=== PATIENT | female | born 1965 | race Caucasian/White ===

== ENCOUNTER 2017-02-28 23:35 | Emergency (ER) | payer BC ==
--- NOTE | 2017-02-28 23:53 | EDM.PDOC ---
ED HPI GENERAL MEDICAL PROBLEM - General Chief Complaint: Chest Pain Stated Complaint: CHEST PAIN Time Seen by Provider: 02/28/17 23:52 Source of Information: Reports: Patient History Limitations: Reports: No Limitations - History of Present Illness INITIAL COMMENTS - FREE TEXT/NARRATIVE: c/o recurrent h/o chest pain prior episodes due to extreme stress, had normal stress 2 years ago see Emily santillan, present episode on off all day but tonight felt worse with pain going down left arm. - Related Data Allergies Allergy/AdvReac Type Severity Reaction Status Date / Time nitrofurantoin Allergy Chest Pain Verified 02/28/17 23:57 [From Macrobid] Home Meds: Home Meds . [No Known Home Meds] 09/15/16 [History] Past Medical History - Past Health History Medical/Surgical History: Denies Medical/Surgical History - Past Surgical History Female Surgical History: Reports: Tubal Ligation Social & Family History - Tobacco Use Smoking Status *Q: Current Every Day Smoker Years of Tobacco use: 3 Packs/Tins Daily: 0.5 Used Tobacco, but Quit: No Second Hand Smoke Exposure: Yes - Caffeine Use Caffeine Use: Reports: Soda Caffeine Use Comment: states one a day - Recreational Drug Use Recreational Drug Use: No ED ROS GENERAL - Review of Systems Review Of Systems: ROS reveals no pertinent complaints other than HPI. ED EXAM, GENERAL - Physical Exam Exam: See Below Exam Limited By: No Limitations General Appearance: Alert, WD/WN, Anxious, Mild Distress Ears: Hearing Grossly Normal Throat/Mouth: Normal Voice, No Airway Compromise Head: Atraumatic Neck: Non-Tender, Full Range of Motion Respiratory/Chest: No Respiratory Distress Cardiovascular: Regular Rate, Rhythm GI/Abdominal: Soft, Non-Tender Neurological: Alert, Oriented, Normal Cognition, Normal Gait, No Motor/Sensory Deficits Psychiatric: Anxious Skin Exam: Warm, Dry Lymphatic: No Adenopathy Course - Vital Signs Last Recorded V/S: Last Vital Signs Temp 36.5 C 03/01/17 03:52 Pulse 63 03/01/17 03:52 Resp 16 03/01/17 03:52 BP 125/68 03/01/17 03:52 Pulse Ox 97 03/01/17 03:52 - Orders/Labs/Meds Orders: Active Orders 24 hr Category Date Time Status EKG Documentation Completion [RC] STAT Care 02/28/17 23:48 Active Labs: Laboratory Tests 02/28/17 02/28/17 03/01/17 Range/Units 00:01 00:01 03:08 WBC 6.0 (5.0-10.0) 10^3/uL RBC 4.20 (4.2-5.4) 10^6/uL Hgb 12.2 (12.0-16.0) g/dL Hct 36.7 L (37.0-47.0) % MCV 87.4 (80-100) fL MCH 29.0 (27.0-34.0) pg MCHC 33.2 (33.0-35.0) g/dL Plt Count 318 (150-450) 10^3/uL Neut % (Auto) 53.8 (42.2-75.2) % Lymph % (Auto) 35.7 (20.5-50.1) % [place]cock % (Auto) 9.0 H (2-8) % Eos % (Auto) 1.2 (1.0-3.0) % Baso % (Auto) 0.3 (0.0-1.0) % Sodium 137 (135-145) mmol/L Potassium 4.0 (3.6-5.0) mmol/L Chloride 101 (101-111) mmol/L Carbon Dioxide 24.0 (21.0-31.0) mmol/L Anion Gap 16.0 BUN 9 (7-18) mg/dL Creatinine 0.7 (0.6-1.3) mg/dL Est Cr Clr Drug Dosing 106.27 mL/min Estimated GFR (MDRD) > 60 BUN/Creatinine Ratio 12.85 Glucose 105 (74-105) mg/dL Calcium 8.8 (8.4-10.2) mg/dl Total Bilirubin 1.1 H (0.2-1.0) mg/dL AST 22 (10-42) IU/L ALT 19 (10-60) IU/L Alkaline Phosphatase 55 (42-121) IU/L Troponin I < 0.02 < 0.02 (0.00-0.02) ng/ml Total Protein 6.9 (6.7-8.2) g/dl Albumin 3.9 (3.2-5.5) g/dl Globulin 3.0 Albumin/Globulin Ratio 1.30 Meds: Medications Discontinued Medications Generic Name Dose Route Start Last Admin Trade Name Sander PRN Reason Stop Dose Admin Hydrocodone Bitart/Acetaminophen 1 tab 03/01/17 01:23 03/01/17 01:27 [place] 325-10 Mg PO 03/01/17 01:24 1 tab ONETIME ONE Administration Aspirin 324 mg 03/01/17 00:04 03/01/17 00:12 Aspirin PO 03/01/17 00:05 324 mg ONETIME ONE Administration Sodium Chloride 1,000 mls @ 999 mls/hr 03/01/17 02:09 03/01/17 00:30 Normal Saline IV 03/01/17 03:09 999 mls/hr .BOLUS ONE Administration Lorazepam 2 mg 03/01/17 00:23 03/01/17 00:35 Ativan IVPUSH 03/01/17 00:24 2 mg ONETIME ONE Administration Nitroglycerin 0.4 mg 03/01/17 00:04 03/01/17 00:13 Nitrostat SL 03/01/17 00:05 0.4 mg ONETIME ONE Administration - Re-Assessments/Exams Free Text/Narrative Re-Assessment/Exam: 03/01/17 00:23 s/p NTG = feels worse. has h/o anxiety. 03/01/17 00:53 s/p ativan = better but not 100%, 03/01/17 06:36 re-exam; results discussed with Pt who is feeling better. Departure - Departure Time of Disposition: 06:36 Disposition: Home, Self-Care 01 Condition: Good Clinical Impression: Atypical chest pain, Reaction, situational, acute, to stress Instructions: Nonspecific Chest Pain, [id number] Forms: ED Department Discharge Additional Instructions: 1) rest 2) see family doctor or clinic for CARDIOLOGY CONSULT 3) recheck if there is any change or concern - My Orders Last 24 Hours: My Active Orders 02/28/17 23:48 EKG Documentation Completion [RC] STAT - Assessment/Plan Last 24 Hours: My Active Orders 02/28/17 23:48 EKG Documentation Completion [RC] STAT
[2017-03-01] MEDS ORDERED: Nitroglycerin 0.4 MG Tab.SL SL ONE (00:04)
[2017-03-01] MEDS ORDERED: Aspirin 81 MG Tab.Chew PO ONE (00:04)
[2017-03-01] MEDS ORDERED: LORazepam 2 MG/ML Syringe IVPUSH ONE (00:23)
[2017-03-01 00:28] LABS: CHLORIDE,CL 101 mmol/L (101-111); SODIUM,NA 137 mmol/L (135-145)
[2017-03-01] MEDS ORDERED: Acetaminophen/HYDROcodone 325-10 MG Tab PO ONE (01:23)
[2017-03-01] MEDS ORDERED: Sodium Chloride 0.9% 1,000 ML IV ONE (02:09)
[2017-03-01 03:53] VITALS: BP 125/68
--- NOTE | 2017-03-01 14:07 | EKG ---
02/28/2017- KANDICE TORRES - Jose Alejandro 12-lead EKG shows normal sinus rhythm with heart rate of 64. No significant ST elevation or ST depression noted on this 12-lead EKG. Nonspecific ST-T wave changes noted on lead III and also on V2. [facility] /[id number]
== END 2017-03-01 06:35 | disposition home or self-care (01) ==
LOC: DL.ED 23:35
DX: R07.89 Other chest pain (principal); F43.0 Acute stress reaction; F17.210 Nicotine dependence, cigarettes, uncomplicated; Z88.8 Allergy status to other drugs, medicaments and biological substances; Z98.51 Tubal ligation status
CPT/HCPCS: 36415; 71010; 80053; 84484; 85025; 93005; A9270; J2060; J7030; 96365; 96375; 99285

== ENCOUNTER 2020-02-13 16:20 | Emergency (ER) | payer BC ==
[2020-02-13] MEDS ORDERED: Aspirin 81 MG Tab.Chew PO ONE (16:49)
[2020-02-13] MEDS ORDERED: GI Cocktail Oral Solution 30 ML PO ONE (16:49)
--- NOTE | 2020-02-13 16:54 | EDM.PDOC ---
ED HPI GENERAL MEDICAL PROBLEM - General Chief Complaint: Chest Pain Stated Complaint: CHEST PAINS Time Seen by Provider: 02/13/20 16:51 Source of Information: Reports: Patient History Limitations: Reports: No Limitations - History of Present Illness INITIAL COMMENTS - FREE TEXT/NARRATIVE: Patient comes emergency department today with complaints of chest pain. The patient reports over the past 4 days she has had intermittent burning across the epigastric region of her abdomen and lower chest. The pain comes and goes on its own feels like a heaviness pressure. It will happen at rest or with physical activity. It does feel like her heartburn that she has struggled with in the past that has been really much worse over the past week and she is struggled immensely with it and feels like she is constantly having heartburn. She has no diaphoresis. The pain does not radiate anywhere. Does not radiate into her back. No syncope weakness dizziness lightheadedness. No cough or congestion. No fever no chills. No abdominal pain other than the epigastric pain. She was seen in the clinic today for urinary tract infection which she is was started on antibiotics for. She did tell the clinic provider that she was having chest pain and they told her to go to the ER during her visit. Chest Pain Score (Numeric/FACES): 5 - Related Data Allergies Allergy/AdvReac Type Severity Reaction Status Date / Time nitrofurantoin Allergy Chest Pain Verified 02/28/17 23:57 [From Macrobid] Home Meds: Home Meds Pantoprazole Sodium [Protonix] 20 mg PO DAILY #28 tablet. 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[employer]ARY History: Reports: Dysfunctional Uterine Bleeding Musculoskeletal History: Reports: None Neurological History: Reports: None Psychiatric History: Reports: None Endocrine/Metabolic History: Reports: None Hematologic History: Reports: None Dermatologic History: Reports: None - Infectious Disease History Infectious Disease History: Reports: None - Past Surgical History Female Surgical History: Reports: Tubal Ligation Social & Family History - Family History Family Medical History: Noncontributory - Tobacco Use Smoking Status *Q: Current Every Day Smoker Years of Tobacco use: 40 Packs/Tins Daily: 0.5 Used Tobacco, but Quit: No Second Hand Smoke Exposure: No - Caffeine Use Caffeine Use: Reports: None Caffeine Use Comment: states one a day - Recreational Drug Use Recreational Drug Use: No ED ROS GENERAL - Review of Systems Review Of Systems: Comprehensive ROS is negative, except as noted in HPI. ED EXAM, GENERAL - Physical Exam Exam: See Below Exam Limited By: No Limitations General Appearance: Alert, WD/WN, No Apparent Distress, Anxious Ears: Normal External Exam Nose: Normal Inspection Throat/Mouth: Normal Inspection Head: Atraumatic, Normocephalic Neck: Normal Inspection, Supple, Non-Tender Respiratory/Chest: No Respiratory Distress, Lungs Clear, Normal Breath Sounds, No Accessory Muscle Use, Chest Non-Tender Cardiovascular: Normal Peripheral Pulses, Regular Rate, Rhythm Peripheral Pulses: 2+: Radial (L), Radial (R), Posterior Tibial (L), Posterior Tibial (R), Dorsalis Pedis (L), Dorsalis Pedis (R) GI/Abdominal: Normal Bowel Sounds, Soft, Tender (mild tenderness in the epigastric region without guarding rebound. Negative murphys sign. ) (Female) Exam: Deferred Rectal (Female) Exam: Deferred Back Exam: Normal Inspection, Full Range of Motion Extremities: Normal Inspection, Normal Range of Motion, Non-Tender, No Pedal Edema Neurological: Alert, Oriented, Normal Cognition, No Motor/Sensory Deficits Psychiatric: Normal Affect, Normal Mood Skin Exam: Warm, Dry, Intact, Normal Color, No Rash EKG INTERPRETATION EKG Date: 02/13/20 Time: 16:31 Rhythm: NSR Rate (Beats/Min): 76 [place]: Normal P-Wave: Present QRS: Normal ST-T: Normal QT: Normal Course - Vital Signs Last Recorded V/S: Last Vital Signs Temp 97.2 F 02/13/20 16:35 Pulse 90 02/13/20 16:35 Resp 18 02/13/20 16:35 BP 152/71 H 02/13/20 16:35 Pulse Ox 99 02/13/20 16:35 - Orders/Labs/Meds Orders: Active Orders 24 hr Category Date Time Status EKG 12 Lead [EKG Documentation Completion] [RC] STAT Care 02/13/20 16:32 Active Labs: Laboratory Tests 02/13/20 02/13/20 Range/Units 16:30 16:30 WBC 5.6 (5.0-10.0) 10^3/uL RBC 4.16 L (4.2-5.4) 10^6/uL Hgb 14.2 D (12.0-16.0) g/dL Hct 40.4 (37.0-47.0) % MCV 97.1 D (80-100) fL MCH 34.1 H (27.0-34.0) pg MCHC 35.1 H (33.0-35.0) g/dL Plt Count 327 (150-450) 10^3/uL Neut % (Auto) 58.7 (42.2-75.2) % Lymph % (Auto) 31.1 (20.5-50.1) % [place] % (Auto) 8.3 H (2-8) % Eos % (Auto) 1.4 (1.0-3.0) % Baso % (Auto) 0.5 (0.0-1.0) % Sodium 138 (136-145) mmol/L Potassium 3.6 (3.5-5.1) mmol/L Chloride 100 (98-107) mmol/L Carbon Dioxide 26 (21-32) mmol/L Anion Gap 15.6 H (7-13) mEq/L BUN 14 (7-18) mg/dL Creatinine 1.31 H (0.55-1.02) mg/dL Est Cr Clr Drug Dosing TNP Estimated GFR (MDRD) 42 BUN/Creatinine Ratio 10.7 (No establ ref range) Glucose 115 H (74-99) mg/dL Calcium 9.4 (8.5-10.1) mg/dL Total Bilirubin 1.3 H (0.2-1.0) mg/dL AST 85 H (15-37) U/L ALT 122 H (14-59) U/L Alkaline Phosphatase 66 (46-116) U/L Troponin I < 0.017 (0.000-0.056) ng/mL Total Protein 8.0 (6.4-8.2) g/dL Albumin 4.2 (3.4-5.0) g/dL Globulin 3.8 Albumin/Globulin Ratio 1.1 Meds: Medications Discontinued Medications Generic Name Dose Route Start Last Admin Trade Name Sander PRN Reason Stop Dose Admin Al Hydroxide/Mg Hydroxide 30 ml 02/13/20 16:49 02/13/20 17:17 Gi Cocktail PO 02/13/20 16:50 30 ml ONETIME ONE Administration Aspirin 324 mg 02/13/20 16:49 02/13/20 17:17 Aspirin PO 02/13/20 16:50 324 mg ONETIME ONE Administration Pantoprazole Sodium 40 mg 02/13/20 17:40 02/13/20 17:58 Protonix PO 02/13/20 17:41 40 mg ONETIME ONE Administration - Re-Assessments/Exams Free Text/Narrative Re-Assessment/Exam: 02/13/20 GI Cocktail with an aprox 95% resolution of the symptoms that she had upon arrival. Labs normal EKG normal Patient's anxiety has resolved also. With her longstanding history of heartburn and her increasing crescendoing symptoms of heartburn over the last week and the resolution of her symptoms with a GI cocktail this is clearly GERD. She does admit that she has been trying to back off on her Zantac and not take it daily as she has done for years. Splane to her that there is a very specific stepwise process for the discontinuation of H2 blockers or PPIs. Is not uncommon when abrupt discontinuation or changes in GERD happened suddenly and they get a rebound hypersecretory response. I also concerns that the patient has never had an EGD with her longstanding history of severe heartburn. She is never vomited any blood. She never has any black or tarry stools. We will start her on Carafate and Protonix for the next 28 days. She does have a history of a peptic ulcer that she was diagnosed with although she is never had a scope to look at her stomach. Like her to follow-up with her primary care kelsey acosta that she already has scheduled and discussed management of GERD testing for Helicobacter pylori disease and a possible EGD. Is comfortable with this plan and her questions are answered. Departure - Departure Time of Disposition: 17:41 Disposition: Home, Self-Care 01 Clinical Impression: Atypical chest pain Gastroesophageal reflux disease Qualifiers: Esophagitis presence: esophagitis presence not specified Qualified Code(s): K21.9 - Gastro-esophageal reflux disease without esophagitis Prescriptions: Sucralfate [Carafate] 1 gm PO QIDACANDBED #120 tablet Pantoprazole Sodium [Protonix] 20 mg PO DAILY #28 tablet.dr Instructions: Food Choices for Gastroesophageal Reflux Disease, Adult, Nonspecific Chest Pain, Adult, [id number], Gastroesophageal Reflux Disease, Adult, [id number] Referrals: PCP,None [Primary Care Provider] - Forms: ED Department Discharge Additional Instructions: Maalox or Mylanta for acute episode of heart burn. Carafate 1 tablet 4 times a day 1/2hr before meals and bedtime for the next 28 days. RX given to the patient. Protonix 40mg daily for the next 28 days. RX given to the patient. If the pain does not resolve with the above therapy seek care at the clinic or ED. See your PCP in the next 5 days. Really consider an EGD scope for your stomach and also possibly a stress test. Return to the ED if new or worsening symptoms. Sepsis Event Note (ED) - Evaluation Sepsis Screening Result: No Definite Risk - My Orders Last 24 Hours: My Active Orders 02/13/20 16:32 EKG 12 Lead [EKG Documentation Completion] [RC] STAT - Assessment/Plan Last 24 Hours: My Active Orders 02/13/20 16:32 EKG 12 Lead [EKG Documentation Completion] [RC] STAT
[2020-02-13 16:57] LABS: ANION GAP 15.6 mEq/L (7-13); CHLORIDE,CL 100 mmol/L (98-107); SODIUM,NA 138 mmol/L (136-145)
--- NOTE | 2020-02-13 17:10 | CR ---
PROCEDURE INFORMATION: Exam: XR Chest, 1 View Exam date and time: 02/13/2020 4:56 PM Age: 54 years old Clinical indication: Other: Cp SOB TECHNIQUE: Imaging protocol: XR of the chest Views: 1 view. COMPARISON: CR Chest 1V Frontal 03/01/2017 12:08 AM FINDINGS: Lungs: Unremarkable. No consolidation. Pleural space: Unremarkable. No pleural effusion. No pneumothorax. Heart/Mediastinum: Unremarkable. No cardiomegaly. Bones/joints: Unremarkable. IMPRESSION: No acute findings. No change.
[2020-02-13] MEDS ORDERED: Pantoprazole 40 MG Tab.CR PO ONE (17:40)
[2020-02-13 18:27] VITALS: BP 152/71; PULSE 90
== END 2020-02-13 18:09 | disposition home or self-care (01) ==
LOC: DL.ED 16:20
DX: K21.9 Gastro-esophageal reflux disease without esophagitis (principal); R07.89 Other chest pain; I10 Essential (primary) hypertension; F17.210 Nicotine dependence, cigarettes, uncomplicated; Z79.899 Other long term (current) drug therapy; Z88.1 Allergy status to other antibiotic agents
CPT/HCPCS: 36415; 71045; 80053; 84484; 85025; 93005; 99285; A9270

== ENCOUNTER 2021-01-27 23:48 | Emergency (ER) | payer BC, OTHER ==
[2021-01-28] MEDS ORDERED: Sodium Chloride 0.9% 1,000 ML IV ONE ×3 (01:35→05:09)
[2021-01-28] MEDS ORDERED: HYDROmorphone 0.5 MG/0.5 ML Syringe IVPUSH ONE (01:35)
[2021-01-28 02:06] LABS: CHLORIDE,CL 99 mmol/L (98-107); SODIUM,NA 135 mmol/L (136-145)
[2021-01-28] MEDS ORDERED: HYDROmorphone 1 MG/ML Syringe IVPUSH ONE (02:16)
--- NOTE | 2021-01-28 02:16 | EDM.PDOC ---
<Renetta Cook - Last Filed: 01/28/21 07:12> ED HPI GENERAL MEDICAL PROBLEM - General Chief Complaint: Abdominal Pain Stated Complaint: ABDOMIN PAIN, GOES UP TO CHEST Time Seen by Provider: 01/28/21 01:23 Source of Information: Reports: Patient, RN, RN Notes Reviewed History Limitations: Reports: No Limitations - History of Present Illness INITIAL COMMENTS - FREE TEXT/NARRATIVE: Patient is a 55-year-old female who presents to ER with complaint of abdominal pain that began around 6:30 PM. She rates the pain a 10/10. Pain is generalized in the abdomen wrapping around to the lower back as well. States she was out for supper with a friend, had decreased appetite, and had diarrhea 3 times while at the restaurant. Patient denies any vomiting, fever, chills. Admits to watery diarrhea since approximately 7 PM. Patient states she is had a headache throughout the day today, which she rates a 5/10 at this time. Admits to left arm tingling for the past 3 hours. Admits to chest pains when the abdominal pain is present, as well as shortness of breath. Patient states she has never had Covid, was last tested in May and that was negative. Denies any known exposure. Denies having had her vaccinations, and states she will not have her vaccinations. Patient states history of migraines, but has not had one for approximately 6 months. Admits to a history of hypertension, anxiety, heart murmur. Denies any history of colitis. Onset: Today, Sudden Lower Abdominal Pain Score (Numeric/FACES): 9 Bilateral Flank Pain Score (Numeric/FACES): 10 - Related Data Allergies Allergy/AdvReac Type Severity Reaction Status Date / Time nitrofurantoin Allergy Chest Pain Verified 01/28/21 00:34 [From Macrobid] Home Meds: Home Meds Pantoprazole Sodium [Protonix] 20 mg PO DAILY #28 maurice. 02/13/20 [Rx] Losartan [Cozaar] 100 mg PO DAILY 01/28/21 [History] buPROPion HCL [Bupropion Xl] 150 mg PO DAILY 01/28/21 [History] hydroCHLOROthiazide [Hydrochlorothiazide] 50 mg PO DAILY 01/28/21 [History] Past Medical History - Past Health History Medical/Surgical History: Denies Medical/Surgical History HEENT History: Reports: None Cardiovascular History: Reports: Heart Murmur, Hypertension, Other (See Below) Other Cardiovascular History: dystolic dysfunction Gastrointestinal History: Reports: GERD Genitourinary History: Reports: None DIABETES PHYSICIAN History: Reports: Dysfunctional Uterine Bleeding Musculoskeletal History: Reports: None Neurological History: Reports: None Psychiatric History: Reports: None Endocrine/Metabolic History: Reports: None Hematologic History: Reports: None Dermatologic History: Reports: None - Infectious Disease History Infectious Disease History: Reports: None - Past Surgical History Female Surgical History: Reports: Tubal Ligation Other Female Surgeries/Procedures: ablasion Social & Family History - Family History Family Medical History: No Pertinent Family History - Tobacco Use Tobacco Use Status *Q: Current Every Day Tobacco User Years of Tobacco use: 6 Packs/Tins Daily: 0.5 - Caffeine Use Caffeine Use: Reports: Soda Caffeine Use Comment: states one a day - Alcohol Use Days Per Week of Alcohol Use: 3 Number of Drinks Per Day: 4 Total Drinks Per Week: 12 - Recreational Drug Use Recreational Drug Use: No ED ROS GENERAL - Review of Systems Review Of Systems: Comprehensive ROS is negative, except as noted in HPI. ED EXAM, GENERAL - Physical Exam Exam: See Below Exam Limited By: No Limitations General Appearance: Alert, WD/WN, Moderate Distress Eye Exam: Bilateral Eye: EOMI, Normal Inspection Ears: Normal External Exam, Hearing Grossly Normal Nose: Normal Inspection Throat/Mouth: Normal Inspection, Normal Voice, No Airway Compromise Head: Atraumatic, Normocephalic Neck: Normal Inspection, Supple, Non-Tender, Full Range of Motion Respiratory/Chest: No Respiratory Distress, Lungs Clear, Normal Breath Sounds, No Accessory Muscle Use, Chest Non-Tender Cardiovascular: Normal Peripheral Pulses, Regular Rate, Rhythm, No Edema, No Ga llop, No JVD, No Rub, Systolic Murmur Peripheral Pulses: 2+: Radial (L), Radial (R) GI/Abdominal: Normal Bowel Sounds, Soft, Tender (generalized, wrapped around to the back) (Female) Exam: Deferred Rectal (Female) Exam: Deferred Back Exam: Normal Inspection, Full Range of Motion, CVA Tenderness (L), CVA Tenderness (R) Extremities: Normal Inspection, Normal Range of Motion, Non-Tender, No Pedal Edema, Normal Capillary Refill, Other (feeling of numbness/tingling to the left arm) Neurological: Alert, Oriented, CN II-XII Intact, Normal Cognition, Normal Gait, No Motor/Sensory Deficits Psychiatric: Normal Affect, Normal Mood, Anxious, Tearful Skin Exam: Warm, Dry, Intact, Normal Color, No Rash Lymphatic: No Adenopathy #1 Interpretation EKG Date: 01/28/21 Time: 01:47 Rhythm: NSR Rate (Beats/Min): 63 [place]: Normal P-Wave: Present QRS: Normal ST-T: Normal QT: Normal Comparison: No Change EKG Interpretation Comments: PVC Course - Radiology Interpretation Free Text/Narrative:: CT head wo contrast: PROCEDURE INFORMATION: Exam: CT Head Without Contrast Exam date and time: 01/28/2021 3:10 AM Age: 55 years old Clinical indication: Headache, abdominal pain. TECHNIQUE: Imaging protocol: Computed tomography of the head without contrast. Radiation optimization: All CT scans at this facility use at least one of these dose optimization techniques: automated exposure control; mA and/or kV adjustment per patient size (includes targeted exams where dose is matched to clinical indication); or iterative reconstruction. COMPARISON: CT Head 10/20/2009 8:11 PM FINDINGS: Brain is unremarkable. No evidence of intracranial hemorrhage, mass effect, hydrocephalus, or significant extra-axial collection. Extracranial soft tissues are unremarkable. Osseous structures are intact. Visualized paranasal sinuses and mastoid air cells are clear. Relative to the comparison examination there has been no significant interval change. IMPRESSION: No acute intracranial findings. Thank you for allowing us to participate in the care of your patient. Dictated and Authenticated by: Oleg Clayton MD 01/28/2021 3:59 AM Central Time ([place] & [place]) CT abdomen/Pelvis wo contrast: Exam: CT Abdomen And Pelvis Without Contrast Exam date and time: 01/28/2021 3:10 AM Age: 55 years old Clinical indication: Abdominal pain; Generalized; Additional info: Headache/abdominal pain TECHNIQUE: Imaging protocol: Computed tomography of the abdomen and pelvis without contrast. Radiation optimization: All CT scans at this facility use at least one of these dose optimization techniques: automated exposure control; mA and/or kV adjustment per patient size (includes targeted exams where dose is matched to clinical indication); or iterative reconstruction. COMPARISON: CT Abdomen Pelvis wo Cont 09/15/2016 8:08 AM FINDINGS: Mediastinal space: Small hiatal hernia. Liver: Hepatomegaly and geographic steatosis. Mild liver contour nodularity concerning for cirrhosis. Suggest dedicated contrast enhanced liver CT or MRI if there is clinical concern for underlying hepatocellular carcinoma. Gallbladder and bile ducts: Normal. No calcified stones. No ductal dilation. Pancreas: Normal. No ductal dilation. Spleen: Normal. No splenomegaly. Adrenal glands: Normal. No mass. Kidneys and ureters: Duplicated right renal collecting system. Stomach and bowel: Diverticulosis of colon. No clear evidence of acute diverticulitis. A segment of bowel wall thickening with stranding of the adjacent fat involving transverse colon suggestive of colitis. Appendix: No evidence of appendicitis. Intraperitoneal space: Unremarkable. No free air. No significant fluid collection. Vasculature: Unremarkable. No abdominal aortic aneurysm. Lymph nodes: Unremarkable. No enlarged lymph nodes. Urinary bladder: Distended urinary bladder. Reproductive: Left ovarian cyst measuring 2.5 cm diameter. Bones/joints: Osteitis pubis. Degenerative changes the bilateral sacroiliac joints. Soft tissues: Unremarkable. IMPRESSION: 1. Hepatomegaly and geographic steatosis. Mild liver contour nodularity concerning for cirrhosis. Suggest dedicated contrast enhanced liver CT or MRI if there is clinical concern for underlying hepatocellular carcinoma. 2. Diverticulosis of colon. No clear evidence of acute diverticulitis. A segment of bowel wall thickening with stranding of the adjacent fat involving transverse colon suggestive of colitis. Thank you for allowing us to participate in the care of your patient. Dictated and Authenticated by: Casimiro Andrade MD 01/28/2021 4:31 AM Central Time ([place] & [place]) See rad report Departure - Departure Disposition: Home, Self-Care 01 Clinical Impression: Colitis, Hepatomegaly, Steatosis of liver Abdominal pain Qualifiers: Abdominal location: generalized Qualified Code(s): R10.84 - Generalized abdominal pain Diarrhea Qualifiers: Diarrhea type: unspecified type Qualified Code(s): R19.7 - Diarrhea, unspecified UTI (urinary tract infection) Qualifiers: Urinary tract infection type: site unspecified Hematuria presence: with hematuria Qualified Code(s): N39.0 - Urinary tract infection, site not specified - Discharge Information *PRESCRIPTION DRUG MONITORING PROGRAM REVIEWED*: No *COPY OF PRESCRIPTION DRUG MONITORING REPORT IN PATIENT DAHIANA: No Instructions: Colitis, Hepatomegaly, Fatty Liver Disease, Nonalcoholic Fatty Liver Disease Diet, Adult Forms: ED Department Discharge Additional Instructions: Rx: Bentyl (Dicyclomine) 20mg: for abdominal pain and cramping. Rx: [place] (Hydrocodone APAP) 5mg/325mg: for pain Rx: Lomotil: for diarrhea Rx: Zofran: for nausea Follow up with your primary doctor within the next week for further evaluation of colitis, and liver. Ask your doctor about a referral to a GI specialist for colonoscopy and liver evaluation. Sepsis Event Note (ED) - Evaluation Sepsis Screening Result: No Definite Risk <Juan Alberto Jean Baptiste - Last Filed: 01/28/21 08:30> ED HPI GENERAL MEDICAL PROBLEM - General Source of Information: Reports: Patient, Provider (Renetta Cook NP), RN, RN Notes Reviewed History Limitations: Reports: No Limitations ED EXAM, GENERAL - Physical Exam Exam: See Below Exam Limited By: No Limitations General Appearance: Alert, WD/WN, No Apparent Distress, Anxious Eye Exam: Bilateral Eye: Normal Inspection (No scleral icterus) Nose: Normal Inspection Throat/Mouth: Normal Voice, No Airway Compromise Head: Atraumatic, Normocephalic Neck: Normal Inspection Respiratory/Chest: No Respiratory Distress GI/Abdominal: Normal Bowel Sounds, Soft, Tender Neurological: Alert, Oriented, No Motor/Sensory Deficits Psychiatric: Anxious, Tearful Skin Exam: Warm, Dry, Intact, Normal Color, No Rash Course - Vital Signs Last Recorded V/S: Last Vital Signs Temp 97.2 F 01/28/21 07:33 Pulse 57 L 01/28/21 07:33 Resp 16 01/28/21 07:33 BP 112/45 L 01/28/21 07:33 Pulse Ox 98 01/28/21 07:33 - Orders/Labs/Meds Orders: Active Orders 24 hr Category Date Time Status EKG Documentation Completion [RC] STAT Care 01/28/21 01:34 Active CLOSTRIDIUM DIFFICILE TOX RFLX [MREF] Stat Lab 01/28/21 06:42 Ordered CULTURE STOOL [RM] Stat Lab 01/28/21 07:10 Ordered CULTURE URINE [RM] Stat Lab 01/28/21 03:03 Received E COLI STOOL CULT [MREF] Stat Lab 01/28/21 07:10 Ordered Sodium Chloride 0.9% [Normal Saline] 1,000 ml Med 01/28/21 05:09 Active IV CONTINUOUS Isolation [COMM] Stat Oth 01/28/21 06:43 Active Medication Orders Sodium Chloride (Normal Saline) 1,000 mls @ 150 mls/hr IV CONTINUOUS ONE Stop: 01/28/21 11:48 Last Admin: 01/28/21 05:30 Dose: 150 mls/hr Documented by: KENDRA Labs: Laboratory Tests 01/28/21 01/28/21 01/28/21 Range/Units 01:37 01:37 01:37 WBC 11.7 H (5.0-10.0) 10^3/uL RBC 4.10 L (4.2-5.4) 10^6/uL Hgb 13.8 (12.0-16.0) g/dL Hct 39.2 (37.0-47.0) % MCV 95.6 (80-100) fL MCH 33.7 (27.0-34.0) pg MCHC 35.2 H (33.0-35.0) g/dL Plt Count 332 (150-450) 10^3/uL Neut % (Auto) 76.8 H (42.2-75.2) % Lymph % (Auto) 15.3 L (20.5-50.1) % [place] % (Auto) 6.7 (2-8) % Eos % (Auto) 0.9 L (1.0-3.0) % Baso % (Auto) 0.3 (0.0-1.0) % Sodium 135 L (136-145) mmol/L Potassium 4.0 (3.5-5.1) mmol/L Chloride 99 (98-107) mmol/L Carbon Dioxide 28 (21-32) mmol/L Anion Gap 12.0 (7-13) mEq/L BUN 20 H (7-18) mg/dL Creatinine 1.15 H (0.55-1.02) mg/dL Est Cr Clr Drug Dosing 61.78 mL/min Estimated GFR (MDRD) 49 BUN/Creatinine Ratio 17.4 (No establ ref range) Glucose 125 H (70-99) mg/dL Calcium 9.1 (8.5-10.1) mg/dL Total Bilirubin 0.8 (0.2-1.0) mg/dL AST 17 (15-37) U/L ALT 37 (14-59) U/L Alkaline Phosphatase 59 (46-116) U/L Troponin I High Sens 5 (<=51) pg/mL C-Reactive Protein < 0.2 (0.0-0.9) mg/dL Total Protein 7.5 (6.4-8.2) g/dL Albumin 3.9 (3.4-5.0) g/dL Globulin 3.6 Albumin/Globulin Ratio 1.1 Amylase 68 (25-115) U/L Lipase 118 (73-393) U/L Urine Color (YELLOW) Urine Appearance (CLEAR) Urine pH (5.0-9.0) Ur Specific [place] (1.005-1.030) Urine Protein (NEGATIVE) Urine Glucose (UA) (NEGATIVE) Urine Ketones (NEGATIVE) Urine Occult Blood (NEGATIVE) Urine Nitrite (NEGATIVE) Urine Bilirubin (NEGATIVE) Urine Urobilinogen (0.2-1.0) mg/dL Ur Leukocyte Esterase (NEGATIVE) Urine RBC /HPF Urine WBC (0-5/HPF) /HPF Ur Epithelial Cells (NOT SEEN) /HPF Amorphous Sediment (NOT SEEN) /HPF Urine Bacteria (0-FEW/HPF) /HPF Urine Mucus (NOT SEEN) /LPF Urine Opiates Screen (NEGATIVE) Ur Oxycodone Screen (NEGATIVE) Urine Methadone Screen (NEGATIVE) Ur Barbiturates Screen (NEGATIVE) U Tricyclic Antidepress (NEGATIVE) Ur Phencyclidine Scrn (NEGATIVE) Ur Amphetamine Screen (NEGATIVE) U Methamphetamines Scrn (NEGATIVE) Urine MDMA Screen (NEGATIVE) U Benzodiazepines Scrn (NEGATIVE) Urine Cocaine Screen (NEGATIVE) U Marijuana (THC) Screen (NEGATIVE) Ethyl Alcohol < 3 (0) mg/dL 01/28/21 01/28/21 Range/Units 03:03 03:03 WBC (5.0-10.0) 10^3/uL RBC (4.2-5.4) 10^6/uL Hgb (12.0-16.0) g/dL Hct (37.0-47.0) % MCV (80-100) fL MCH (27.0-34.0) pg MCHC (33.0-35.0) g/dL Plt Count (150-450) 10^3/uL Neut % (Auto) (42.2-75.2) % Lymph % (Auto) (20.5-50.1) % [place] % (Auto) (2-8) % Eos % (Auto) (1.0-3.0) % Baso % (Auto) (0.0-1.0) % Sodium (136-145) mmol/L Potassium (3.5-5.1) mmol/L Chloride (98-107) mmol/L Carbon Dioxide (21-32) mmol/L Anion Gap (7-13) mEq/L BUN (7-18) mg/dL Creatinine (0.55-1.02) mg/dL Est Cr Clr Drug Dosing mL/min Estimated GFR (MDRD) BUN/Creatinine Ratio (No establ ref range) Glucose (70-99) mg/dL Calcium (8.5-10.1) mg/dL Total Bilirubin (0.2-1.0) mg/dL AST (15-37) U/L ALT (14-59) U/L Alkaline Phosphatase (46-116) U/L Troponin I High Sens (<=51) pg/mL C-Reactive Protein (0.0-0.9) mg/dL Total Protein (6.4-8.2) g/dL Albumin (3.4-5.0) g/dL Globulin Albumin/Globulin Ratio Amylase (25-115) U/L Lipase (73-393) U/L Urine Color Yellow (YELLOW) Urine Appearance Cloudy (CLEAR) Urine pH 6.5 (5.0-9.0) Ur Specific [place] 1.015 (1.005-1.030) Urine Protein Negative (NEGATIVE) Urine Glucose (UA) Negative (NEGATIVE) Urine Ketones Negative (NEGATIVE) Urine Occult Blood Trace-intact H (NEGATIVE) Urine Nitrite Negative (NEGATIVE) Urine Bilirubin Negative (NEGATIVE) Urine Urobilinogen 0.2 (0.2-1.0) mg/dL Ur Leukocyte Esterase Small H (NEGATIVE) Urine RBC 5-10 H /HPF Urine WBC 10-20 H (0-5/HPF) /HPF Ur Epithelial Cells Moderate H (NOT SEEN) /HPF Amorphous Sediment Few (NOT SEEN) /HPF Urine Bacteria Few (0-FEW/HPF) /HPF Urine Mucus Few H (NOT SEEN) /LPF Urine Opiates Screen Negative (NEGATIVE) Ur Oxycodone Screen Negative (NEGATIVE) Urine Methadone Screen Negative (NEGATIVE) Ur Barbiturates Screen Negative (NEGATIVE) U Tricyclic Antidepress Negative (NEGATIVE) Ur Phencyclidine Scrn Negative (NEGATIVE) Ur Amphetamine Screen Negative (NEGATIVE) U Methamphetamines Scrn Negative (NEGATIVE) Urine MDMA Screen Negative (NEGATIVE) U Benzodiazepines Scrn Negative (NEGATIVE) Urine Cocaine Screen Negative (NEGATIVE) U Marijuana (THC) Screen Negative (NEGATIVE) Ethyl Alcohol (0) mg/dL Meds: Medications Generic Name Dose Route Start Last Admin Trade Name Freq PRN Reason Stop Dose Admin Sodium Chloride 1,000 mls @ 150 mls/hr 01/28/21 05:09 01/28/21 05:30 Normal Saline IV 01/28/21 11:48 150 mls/hr CONTINUOUS ONE Administration Discontinued Medications Generic Name Dose Route Start Last Admin Trade Name Freq PRN Reason Stop Dose Admin Dicyclomine HCl 20 mg 01/28/21 05:10 01/28/21 05:33 Dicyclomine 20 Mg/2 Ml Sdv IM 01/28/21 05:11 Not Given ONETIME ONE Dicyclomine HCl 20 mg 01/28/21 05:13 01/28/21 05:29 Dicyclomine 10 Mg Cap PO 01/28/21 05:14 20 mg ONETIME ONE Administration Dicyclomine HCl 20 mg 01/28/21 06:11 01/28/21 06:20 Dicyclomine 20 Mg/2 Ml Sdv IM 01/28/21 06:12 20 mg ONETIME ONE Administration Fentanyl 100 mcg 01/28/21 03:48 01/28/21 03:52 Fentanyl 100 Mcg/2 Ml Sdv IVPUSH 01/28/21 03:49 100 mcg ONETIME ONE Administration Hydromorphone HCl 0.5 mg 01/28/21 01:35 01/28/21 01:41 Hydromorphone 0.5 Mg/0.5 Ml Syringe IVPUSH 01/28/21 01:36 0.5 mg ONETIME ONE Administration Hydromorphone HCl 1 mg 01/28/21 02:16 01/28/21 02:30 Hydromorphone 1 Mg/Ml Syringe IVPUSH 01/28/21 02:17 1 mg ONETIME ONE Administration Sodium Chloride 1,000 mls @ 999 mls/hr 01/28/21 01:35 01/28/21 01:41 Normal Saline IV 01/28/21 02:35 999 mls/hr .BOLUS ONE Administration Sodium Chloride 1,000 mls @ 999 mls/hr 01/28/21 02:16 01/28/21 02:30 Normal Saline IV 01/28/21 03:16 999 mls/hr .BOLUS ONE Administration Clindamycin Phosphate 300 mg/ 52 mls @ 100 mls/hr 01/28/21 04:49 01/28/21 05:10 Sodium Chloride IV 01/28/21 05:20 100 mls/hr ONETIME ONE Administration Ondansetron HCl 4 mg 01/28/21 03:36 01/28/21 03:42 Ondansetron 4 Mg/2 Ml Sdv IV 01/28/21 03:37 4 mg ONETIME ONE Administration Ondansetron HCl 4 mg 01/28/21 05:40 01/28/21 05:43 Ondansetron 4 Mg/2 Ml Sdv IV 01/28/21 05:41 4 mg ONETIME ONE Administration Ondansetron HCl Confirm 01/28/21 05:41 01/28/21 06:37 Ondansetron 4 Mg/2 Ml Sdv Administered 01/28/21 05:42 Not Given D[facility] 4 [facility] Re-Assessments/Exams Free Text/Narrative Re-Assessment/Exam: 01/28/21 I assumed care of the pt from Renetta Cook NP at 0700HR shift change. Pt has now been here just shy of 8 hours. I have reviewed the chart note from Renetta, as well as diagnostic lab and imaging results. I explained to the pt that she will need to follow up in clinic for colonoscopy and further evaluation of her liver. The colitis will be treated symptomatically with pain and diarrhea control. Free Text/Narrative Re-Assessment/Exam: 01/28/21 08:17 After I left the pt's room from explaining the disposition planning, I was informed the pt was unhappy with me and wished to speak to someone to voice her complaint. Tracey Gagnon came and met with the pt in ER room 4. The pt did not speak to me about why she was not satisfied. She did ask if she could be allowed to sleep here. I politely informed her that she has been here for 8 hours, and does not need to be admitted, therefore she can go home to sleep. Departure - Departure Time of Disposition: 08:24 Condition: Fair Sepsis Event Note (ED) - Focused Exam Vital Signs: Vital Signs Temp Pulse Resp BP BP Pulse Ox 01/28/21 07:33 97.2 F 57 L 16 112/45 L 98 01/28/21 06:15 96.9 F 55 L 18 124/68 100 01/28/21 00:18 97.2 F 82 20 143/78 H 100
[2021-01-28] MEDS ORDERED: Ondansetron 4 MG/2 ML SDV IV ONE ×2 (03:36→05:40)
[2021-01-28] MEDS ORDERED: fentaNYL 100 MCG/2 ML SDV IVPUSH ONE (03:48)
--- NOTE | 2021-01-28 04:00 | CT ---
PROCEDURE INFORMATION: Exam: CT Head Without Contrast Exam date and time: 01/28/2021 3:10 AM Age: 55 years old Clinical indication: Headache, abdominal pain. TECHNIQUE: Imaging protocol: Computed tomography of the head without contrast. Radiation optimization: All CT scans at this facility use at least one of these dose optimization techniques: automated exposure control; mA and/or kV adjustment per patient size (includes targeted exams where dose is matched to clinical indication); or iterative reconstruction. COMPARISON: CT Head 10/20/2009 8:11 PM FINDINGS: Brain is unremarkable. No evidence of intracranial hemorrhage, mass effect, hydrocephalus, or significant extra-axial collection. Extracranial soft tissues are unremarkable. Osseous structures are intact. Visualized paranasal sinuses and mastoid air cells are clear. Relative to the comparison examination there has been no significant interval change. IMPRESSION: No acute intracranial findings.
--- NOTE | 2021-01-28 04:31 | CT ---
PROCEDURE INFORMATION: Exam: CT Abdomen And Pelvis Without Contrast Exam date and time: 01/28/2021 3:10 AM Age: 55 years old Clinical indication: Abdominal pain; Generalized; Additional info: Headache/abdominal pain TECHNIQUE: Imaging protocol: Computed tomography of the abdomen and pelvis without contrast. Radiation optimization: All CT scans at this facility use at least one of these dose optimization techniques: automated exposure control; mA and/or kV adjustment per patient size (includes targeted exams where dose is matched to clinical indication); or iterative reconstruction. COMPARISON: CT Abdomen Pelvis wo Cont 09/15/2016 8:08 AM FINDINGS: Mediastinal space: Small hiatal hernia. Liver: Hepatomegaly and geographic steatosis. Mild liver contour nodularity concerning for cirrhosis. Suggest dedicated contrast enhanced liver CT or MRI if there is clinical concern for underlying hepatocellular carcinoma. Gallbladder and bile ducts: Normal. No calcified stones. No ductal dilation. Pancreas: Normal. No ductal dilation. Spleen: Normal. No splenomegaly. Adrenal glands: Normal. No mass. Kidneys and ureters: Duplicated right renal collecting system. Stomach and bowel: Diverticulosis of colon. No clear evidence of acute diverticulitis. A segment of bowel wall thickening with stranding of the adjacent fat involving transverse colon suggestive of colitis. Appendix: No evidence of appendicitis. Intraperitoneal space: Unremarkable. No free air. No significant fluid collection. Vasculature: Unremarkable. No abdominal aortic aneurysm. Lymph nodes: Unremarkable. No enlarged lymph nodes. Urinary bladder: Distended urinary bladder. Reproductive: Left ovarian cyst measuring 2.5 cm diameter. Bones/joints: Osteitis pubis. Degenerative changes the bilateral sacroiliac joints. Soft tissues: Unremarkable. IMPRESSION: 1. Hepatomegaly and geographic steatosis. Mild liver contour nodularity concerning for cirrhosis. Suggest dedicated contrast enhanced liver CT or MRI if there is clinical concern for underlying hepatocellular carcinoma. 2. Diverticulosis of colon. No clear evidence of acute diverticulitis. A segment of bowel wall thickening with stranding of the adjacent fat involving transverse colon suggestive of colitis.
[2021-01-28] MEDS ORDERED: Dicyclomine 20 MG/2 ML SDV IM ONE ×2 (05:10→06:11)
[2021-01-28] MEDS ORDERED: Dicyclomine 10 MG Cap PO ONE (05:13)
[2021-01-28] MEDS ORDERED: Ondansetron 4 MG/2 ML SDV ONE (05:41)
[2021-01-28 07:33] VITALS: BP 112/45; PULSE 57
== END 2021-01-28 08:37 | disposition home or self-care (01) ==
LOC: DL.ED 23:48
DX: K52.9 Noninfective gastroenteritis and colitis, unspecified (principal); N39.0 Urinary tract infection, site not specified; R16.0 Hepatomegaly, not elsewhere classified; I10 Essential (primary) hypertension; K21.9 Gastro-esophageal reflux disease without esophagitis; Z88.1 Allergy status to other antibiotic agents; Z79.899 Other long term (current) drug therapy
CPT/HCPCS: 36415; 70450; 74176; 80053; 80305-QW; 80307; 81001; 82150; 83690; 84484; 85025; 86140; 87046; 87086; 93005; 93010; 96365; 96372; 96375; 96376; 99284; 99285-25; A9270-GY; J0500; J1170; J2405; J3010; J3490; J7030